=== PATIENT | female | born 1950 | race African-American/Black ===

== ENCOUNTER 2019-01-30 15:03 | Inpatient (IN) ==
[2019-01-30 17:14] VITALS: BMI 22.1
[2019-01-30] MEDS ORDERED: HumuLIN R SUBCUT PRN (17:19)
[2019-01-30] MEDS ORDERED: TORADOL 30 MG VIAL IVP PRN (17:20)
[2019-01-30] MEDS ORDERED: AMBIEN PO PRN (17:20)
[2019-01-30] MEDS ORDERED: ZOFRAN INJ 4 MG VIAL IVP PRN (17:20)
[2019-01-30] MEDS ORDERED: PHENERGAN INJ 25 MG IM PRN (17:20)
[2019-01-30] MEDS ORDERED: DEMEROL INJ IVP PRN (17:20)
[2019-01-30] MEDS ORDERED: NS 1000 ML 1,000 ML ONE (17:30)
[2019-01-30] MEDS ORDERED: CIPRO IV 400 MG PREMIX* 400 MG/200 ML IV.SOLN. ONE (17:31)
[2019-01-30] MEDS ORDERED: PROTONIX INJ 40 MG VIAL ONE (17:32)
[2019-01-30] MEDS: NS 1000 ML 1,000 ML IV SCH (17:46)
[2019-01-30] MEDS: PROTONIX INJ 40 MG VIAL IVP SCH ×2 (17:47→21:45)
[2019-01-30 17:54] LABS: EOSINOPHILS % (AUTO) 0.8 % (0.9-2.9); HEMATOCRIT 38.6 % (36.0-47.0); HEMOGLOBIN 12.9 g/dL (12.0-16.0); LYMPHOCYTES # (AUTO) 1.6 X10^3/uL (1.3-2.9); LYMPHOCYTES % (AUTO) 40.1 % (21.0-51.0); MEAN CORPUSCULAR HGB CONC 33.4 g/dL (33.0-35.0); MEAN CORPUSCULAR VOLUME 93.1 fL (80.0-100.0); MONOCYTES # (AUTO) 0.2 x10^3/uL (0.3-0.8); MONOCYTES % (AUTO) 6.3 % (0.0-13.0); NEUTROPHILS % (AUTO) 51.8 % (42.0-75.0); PLATELET COUNT 306 X10^3/uL (150.0-450.0); RED BLOOD COUNT 4.15 X10^6/uL (3.5-5.4); RED CELL DISTRIBUTION WIDTH 12.9 % (11.6-16.5)
[2019-01-30] MEDS ORDERED: CIPRO IV 400 MG PREMIX* 400 MG/200 ML IV.SOLN. IV SCH (18:00)
[2019-01-30 18:07] LABS: ALANINE AMINOTRANSFERASE 16 Units/L (12-78); ALBUMIN 3.7 g/dL (3.4-5.0); ALKALINE PHOSPHATASE 91 Units/L (46-116); ASPARTATE AMINO TRANSFERASE 24 Units/L (15-37); BLOOD UREA NITROGEN 14 mg/dL (7-18); CALCIUM 9.4 mg/dL (8.5-10.1); CARBON DIOXIDE 26.1 mmol/L (21-32); CHLORIDE 101 mmol/L (98-107); CREATININE 0.79 mg/dL (0.55-1.02); SODIUM 137 mmol/L (136-145); TOTAL PROTEIN 8.3 g/dL (6.4-8.2); eGFR NON BLACK RACES > 60 (>60)
[2019-01-30] MEDS ORDERED: KLOR-CON PO PRN (18:51)
[2019-01-30] MEDS ORDERED: K-RIDER 10 MEQ/NS 100 ML 10 MEQ/100 ML BAG IV PRN (18:51)
[2019-01-30] MEDS ORDERED: POTASSIUM CHLORIDE LIQ 20 MEQ UDC PO PRN (18:51)
[2019-01-30] MEDS ORDERED: POTASSIUM CHL 60 MEQ/NS 0.45% 500 ML IV PRN (18:51)
[2019-01-30] MEDS ORDERED: POTASSIUM CHL 40 MEQ/NS 0.45% 500 ML IV PRN (18:51)
[2019-01-30] MEDS ORDERED: K-DUR TAB 20 MEQ PO PRN (18:51)
[2019-01-30] MEDS ORDERED: MICRO K EXTEN CAP 10 MEQ PO PRN (18:51)
[2019-01-30 19:37] LABS: BILIRUBIN,URINE NEGATIVE (NEGATIVE); BLOOD/HEMOGLOBIN,URINE NEGATIVE (NEGATIVE); GLUCOSE, URINE NEGATIVE (NEGATIVE); KETONES,URINE NEGATIVE (NEGATIVE); LEUKOCYTE ESTERASE ,URINE NEGATIVE (NEGATIVE); NITRITES,URINE NEGATIVE (NEGATIVE); PROTEIN,URINE NEGATIVE (NEGATIVE); UROBILINOGEN,URINE NORMAL (NORMAL)
[2019-01-30 19:44] LABS: APPEARANCE,URINE CLEAR (CLEAR); COLOR,URINE YELLOW (YELLOW)
[2019-01-30] MEDS: SNACK - Diabetic Appropriate PO SCH (21:00)
[2019-01-30] MEDS: ROCEPHIN VIAL 1 GRAM IVP SCH (21:48)
[2019-01-30] MEDS: MAGNESIUM SULFATE 1 GRAM/100 mL PREMIX 1 GM/100 ML BAG IV PRN (22:15)
[2019-01-31] MEDS: MAGNESIUM SULFATE 1 GRAM/100 mL PREMIX 1 GM/100 ML BAG IV PRN ×2 (00:40→01:56)
[2019-01-31] MEDS: NS 1000 ML 1,000 ML IV SCH ×3 (02:21→22:40)
[2019-01-31 05:46] LABS: EOSINOPHILS % (AUTO) 0.9 % (0.9-2.9); HEMATOCRIT 37.4 % (36.0-47.0); HEMOGLOBIN 12.5 g/dL (12.0-16.0); LYMPHOCYTES # (AUTO) 1.6 X10^3/uL (1.3-2.9); LYMPHOCYTES % (AUTO) 46.7 % (21.0-51.0); MEAN CORPUSCULAR HEMOGLOBIN 31.4 pg (27.0-34.0); MEAN CORPUSCULAR HGB CONC 33.5 g/dL (33.0-35.0); MEAN CORPUSCULAR VOLUME 93.8 fL (80.0-100.0); MEAN PLATELET VOLUME 8.7 fL (7.4-11.0); MONOCYTES # (AUTO) 0.2 x10^3/uL (0.3-0.8); MONOCYTES % (AUTO) 6.7 % (0.0-13.0); NEUTROPHILS # (AUTO) 1.6 x10^3/uL (2.2-4.8); NEUTROPHILS % (AUTO) 44.7 % (42.0-75.0); PLATELET COUNT 290 X10^3/uL (150.0-450.0); RED BLOOD COUNT 3.99 X10^6/uL (3.5-5.4); RED CELL DISTRIBUTION WIDTH 12.5 % (11.6-16.5); WHITE BLOOD COUNT 3.5 X10^3/uL (3.6-10.0)
[2019-01-31 05:59] LABS: ALANINE AMINOTRANSFERASE 17 Units/L (12-78); ALBUMIN 3.3 g/dL (3.4-5.0); ALKALINE PHOSPHATASE 76 Units/L (46-116); ASPARTATE AMINO TRANSFERASE 20 Units/L (15-37); BLOOD UREA NITROGEN 9 mg/dL (7-18); CALCIUM 8.7 mg/dL (8.5-10.1); CARBON DIOXIDE 27.2 mmol/L (21-32); CHLORIDE 103 mmol/L (98-107); COR CA(FOR HYPOALB) 9.3 mg/dL (8.5-10.1); COR NA(FOR HYPERGLY) 141 mmol/L (136-145); CREATININE 0.78 mg/dL (0.55-1.02); MAGNESIUM 2.7 mg/dL (1.7-2.9); SODIUM 140 mmol/L (136-145); TOTAL PROTEIN 7.6 g/dL (6.4-8.2); eGFR NON BLACK RACES > 60 (>60)
--- NOTE | 2019-01-31 07:42 | CT ---
History: Abdominal pain and dehydration Study coal CT abdomen and pelvis with 100 mL Omnipaque 350 IV contrast and with oral contrast. Sagittal and coronal reformations were provided. Dose reduction techniques were utilized. Comparison: None Findings: The lung bases are clear. There is no effusion. There is a 1 cm cyst in the lateral segment of the left lobe of the liver ventrally. The spleen and pancreas and adrenal glands and kidneys are unremarkable. Although the right renal pelvis is prominent there is no evidence for obstruction. There is ascites or adenopathy or bowel distention. No inflammatory changes are suggested. The gallbladder is unremarkable. There is no biliary dilatation. The uterus is apparently absent. The urinary bladder is fairly empty. The IVC is unremarkable. No significant bony abnormality is demonstrated. Impression: Negative, no acute disease demonstrated Reported By:
[2019-01-31] MEDS: PROTONIX INJ 40 MG VIAL IVP SCH ×2 (08:44→21:14)
[2019-01-31] MEDS: ROCEPHIN VIAL 1 GRAM IVP SCH (08:45)
[2019-01-31] MEDS ORDERED: PHARMACY CONSULT - DOSE _____ XX SCH (10:00)
[2019-01-31] MEDS: LEVSIN/MAALOX/LIDOC VISC PO SCH ×5 (11:09→21:08)
[2019-01-31] MEDS: ACTOS PO SCH ×2 (11:09→12:37)
[2019-01-31] MEDS: PREMARIN PO SCH (11:12)
[2019-01-31] MEDS: LOVENOX INJ 40 MG SYR SC SCH (11:13)
[2019-01-31] MEDS: PEPCID 20 MG IV PREMIX* 20 MG/50 ML BAG IV SCH ×3 (11:13→21:21)
--- NOTE | 2019-01-31 11:16 | DR.UPDATE ---
H&P Update History and Physical Update: History and Physical reviewed and patient examined. Changes noted: Yes with the following: HAS BEEN SEEN IN [facility] OFFICE FOR THE PAST TWO DAYS FOR COMPLAINTS OF GENERALIZED WEAKNESS, FATIGUE, NAUSEA AND VOMITING, LOWER ABDOMINAL PAIN, AND DARK URINE WITH FOUL ODOR. SHE WAS GIVEN A ROCEPHIN INJECTION IN THE OFFICE AND STARTED ON CIPRO 400MG PO BID ON 01/28. SHE DENIED IMPROVEMENT IN SYMPTOMS TODAY. PATIENT WAS ADMITTED FOR FURTHER EVALUATION AND TREATMENT OF GENERALIZED WEAKNESS, UTI, DEHYDRATION, AND RULE OUT PYELONEPHRITIS. ON ADMISSION, VITALS WERE [id number]%-119/69. LABS WERE OBTAINED. ABNORMAL LAB VALUES INCLUDE THE FOLLOWING: TOTAL PROTEIN 8.3, GLOBULIN 4.6, MAGNESIUM 1.4. OTHERWISE, SHE IS HEMODYNAMICALLY STABLE. A URINE CULTURE IS PENDING. BLOOD CULTURES WERE OBTAINED. WE OBTAINED AN ABDOMEN/PELVIS CT. IT REVEALED: Negative, no acute disease demonstrated. SHE WAS STARTED ON NORMAL SALINE AT 125ML/HR, CIPRO 400MG IV BID, PROTONIX 40MG IV BID, DEMEROL 25MG IV Q6H PRN, PHENERGAN 12.5MG IM Q6H PRN, AND HOME MEDICATIONS WERE RESUMED. WE PLAN TO FOLLOW UP WITH AM LABS AND CONTINUE TO MONITOR.
[2019-01-31] MEDS: MIRALAX POWDER (1 DOSE 17 G) PO SCH (11:20)
[2019-01-31] MEDS ORDERED: GLUCOPHAGE PO SCH (17:00)
[2019-01-31] MEDS: SNACK - Diabetic Appropriate PO SCH (20:00)
[2019-01-31] MEDS ORDERED: LIPITOR TAB 10 MG PO SCH (21:00)
[2019-02-01] MEDS: NS 1000 ML 1,000 ML IV SCH ×2 (03:44→11:07)
[2019-02-01 05:16] LABS: BASOPHILS % (AUTO) 1.5 % (0.2-1.0); EOSINOPHILS % (AUTO) 1.2 % (0.9-2.9); HEMATOCRIT 33.5 % (36.0-47.0); HEMOGLOBIN 11.1 g/dL (12.0-16.0); LYMPHOCYTES # (AUTO) 1.4 X10^3/uL (1.3-2.9); LYMPHOCYTES % (AUTO) 44.8 % (21.0-51.0); MEAN CORPUSCULAR VOLUME 93.8 fL (80.0-100.0); MEAN PLATELET VOLUME 8.3 fL (7.4-11.0); MONOCYTES # (AUTO) 0.3 x10^3/uL (0.3-0.8); MONOCYTES % (AUTO) 8.3 % (0.0-13.0); NEUTROPHILS # (AUTO) 1.4 x10^3/uL (2.2-4.8); NEUTROPHILS % (AUTO) 44.2 % (42.0-75.0); PLATELET COUNT 258 X10^3/uL (150.0-450.0); RED BLOOD COUNT 3.57 X10^6/uL (3.5-5.4); RED CELL DISTRIBUTION WIDTH 12.2 % (11.6-16.5); WHITE BLOOD COUNT 3.2 X10^3/uL (3.6-10.0)
[2019-02-01 05:47] LABS: ALANINE AMINOTRANSFERASE 15 Units/L (12-78); ALBUMIN 2.8 g/dL (3.4-5.0); ALKALINE PHOSPHATASE 72 Units/L (46-116); ASPARTATE AMINO TRANSFERASE 20 Units/L (15-37); BLOOD UREA NITROGEN 9 mg/dL (7-18); CALCIUM 8.1 mg/dL (8.5-10.1); CARBON DIOXIDE 24.9 mmol/L (21-32); CHLORIDE 106 mmol/L (98-107); COR CA(FOR HYPOALB) 9.1 mg/dL (8.5-10.1); COR NA(FOR HYPERGLY) 142 mmol/L (136-145); CREATININE 0.71 mg/dL (0.55-1.02); SODIUM 140 mmol/L (136-145); TOTAL PROTEIN 6.5 g/dL (6.4-8.2); eGFR NON BLACK RACES > 60 (>60)
[2019-02-01] MEDS: LEVSIN/MAALOX/LIDOC VISC PO SCH (08:34)
[2019-02-01] MEDS: LOVENOX INJ 40 MG SYR SC SCH (08:37)
[2019-02-01] MEDS: PROTONIX INJ 40 MG VIAL IVP SCH ×2 (08:37→08:50)
[2019-02-01] MEDS: ROCEPHIN VIAL 1 GRAM IVP SCH ×2 (08:38→08:50)
[2019-02-01] MEDS: PEPCID 20 MG IV PREMIX* 20 MG/50 ML BAG IV SCH ×2 (08:38→08:42)
[2019-02-01] MEDS: ACTOS PO SCH (08:41)
[2019-02-01] MEDS: MIRALAX POWDER (1 DOSE 17 G) PO SCH (08:42)
[2019-02-01] MEDS: PREMARIN PO SCH (08:47)
[2019-02-01 12:27] VITALS: BP 107/64
== END 2019-02-01 11:55 | disposition home or self-care (01) | DRG 690 ==
LOC: MED/SURG → OBSVTOIN 15:27
PROVIDERS: ADMIT Internal Medicine; ATTEND Internal Medicine
DX: R10.84 Generalized abdominal pain; R11.2 Nausea with vomiting, unspecified; I10 Essential (primary) hypertension; R42 Dizziness and giddiness; E11.65 Type 2 diabetes mellitus with hyperglycemia; E83.42 Hypomagnesemia; E86.0 Dehydration; N39.0 Urinary tract infection, site not specified; R53.83 Other fatigue
CPT/HCPCS: 36415; 74177; 80053; 81003; 83735; 85025; 87040; 87086; A4216; A4222; C9113; S0028; J0696; J0744; J1650; J3475; J7030